=== PATIENT | male | born 1980 | race Caucasian/White ===

== ENCOUNTER → 2019-11-19 15:31 | Outpatient (CLI) | payer SELFPAY ==
--- NOTE | 2019-11-19 | IMM_PTH ---
PATIENT: VANCE NEWMAN LOC: [facility] U#:[id number] AGE/SX: 44/M ROOM: RE11/19/[address]: Dr. Blake Becker DO : 1980 BED: DIS: SPEC #: [id number] RECD: 11/21/19 13:11 STATUS: VALERIA REQ #: [id number] ANA: 11/19/19 00:[address]: Blake Becker DEPT: IMMUNOHISTOCHEMISTRY RECD BY: Geovanna Benson ENTERED: 11/21/19 13:12 SP TYPE: IMMUNO OTHR DR: Dr. 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 Localization is made via biotin free immunoperoxidase method. Appropriate controls are performed and reacted as expected. Results on target cell population are indicated in the following table: RESULTS: ANTIBODY / CLONE RESULT Block B CD3 (PS1) positive CD5 (SP10) positive CD20 (L26) positive CD45 (RP2/18) positive CD79a (11E3) positive CD34 (QBEnd-10) positive, rare cells These tests were developed and their performance characteristics determined by [facility]. They may not have been cleared or approved by the [place]. Food and Drug Administration. The FDA has determined that such clearance or approval is not necessary. The above immunohistochemical/dualISH markers are ordered and reviewed by the Pathologist. INTERPRETATION: B. Bone marrow clot, biopsy: Interstitial infiltrates of small lymphocytes and minute lymphoid aggregates are noted, polytypic in nature, favor benign. Significant increase number of blasts are not seen. SJ:jesi 11/24/19
--- NOTE | 2019-11-19 13:30 | BMB_PTH ---
PATIENT: VANCE NEWMAN LOC: [facility] U#:[id number] AGE/SX: 44/M ROOM: RE11/19/[address]: Dr. Blake Becker DO : 1980 BED: DIS: SPEC #: [id number] RECD: 11/19/19 15:30 STATUS: VALERIA REQ #: [id number] ANA: 11/19/19 13:[address]: Blake Becker DEPT: BONE MARROW RECD BY: Rohith Gonzalez ENTERED: 11/20/19 08:04 SP TYPE: BMB OT DR: Dr. 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 Iron - absent. Flow cytometry study from [facility] shows no significant immunophenotypic abnormality detected. The complete report is viewable in patient's EMR. Cytogenetic studies are pending at this time. SJ:jesi 11/25/19 COMMENT Bone marrow core biopsy and clot do not show any significant increase of myeloid cells. Correlation with clinical findings and appropriate follow up are necessary. As per clinical history, patient has history of CML x5 years and recent increase in BCR/ABL. Case has been reviewed in consultation with Dr. Obrien who concurs with the above diagnosis. IDC:AM BONE MARROW STUDY Slides are reviewed. CBC DATE: 11/19/19 WBC 3.88; RBC 4.48; HGB 13.5; HCT 41.9; MCV 93.5; RDW 13.5; PLTS 117,000 SEGS 60.5%; LYMPHS 30.7%; MONOS 7.0%; EOS 1.3%; BASOS 0.5% PERIPHERAL SMEAR: Submitted. RBC: Normocytic and normochromic. WBC: Unremarkable. The WBC count is compatible to as reported above. PLTS: Mildly decreased. BONE MARROW ASPIRATE DIFFERENTIAL: 200 cell count. Blasts % (normal 0-2): 0 Promyelocytes % (normal 1-5): 1elocytes and metamyelocytes % (normal 17-41): 20 Bands and Segs % (normal 15-32): 41 Eos % (normal 1-6): 4 Basos % (normal 0-1): 0 Monocytes % (normal 0-4): 1 Erythroid Precursors % (normal 17-35): 23 Lymphocytes % (normal 7-13): 10 Plasma Cells % (normal 0-2): 0 ASPIRATE FINDINGS: Site: Not specified Spicular, Cellular M/E ratio: 2.9 (Normal 1.5-4.0) Megakaryocytes: Present and normal morphology. Erythropoiesis: Normoblastic. Granulopoiesis: Progressive and unremarkable. CORE BIOPSY FINDINGS: Site: Not specified Adequacy: Adequate Cellularity: 50% M/E ratio: Within normal limits. Megakaryocytes: Present and adequate in number. Bony trabeculae: Unremarkable. Granulomas: Absent. Lymphoid aggregate: Absent. Atypical infiltrate: Absent. ASPIRATE CLOT FINDINGS: Site: Not specified Marrow particles: Numerous Cellularity: 50% M/E ratio: Within normal limits. Megakaryocytes: Present and adequate in number. Granulomas: Absent. Lymphoid aggregates: Minute lymphoid aggregates are noted.. Atypical infiltrates: Absent. Comment: Immunohistochemistry ([id number]) shows interstitial infiltrates of small lymphocytes and minute lymphoid aggregates, polytypic in nature, favor benign. Significant increase number of blasts are not seen. SPECIAL STAINS WITH MATCHED CONTROLS: Iron: Absent. Reticulin: No significant increase of reticulin fibers is noted. PAS: Highlights myeloid cells and megakaryocytes. BONE MARROW GROSS A - Received is a container labeled with the patient's name and designated bone marrow biopsy core. The specimen consists of a piece of treviño bone measuring 1 cm in length and 0.2 cm in diameter. The specimen is totally submitted in one cassette after decalcification. B - Received labeled with the patient's name and designated bone marrow biopsy clot is a specimen that consists of approximately 15 cc of bloody fluid that on filtration yields multiple minute fragments of blood clots measuring in aggregate 2 x 1.5 x 0.2 cm. The specimen is totally submitted in one cassette. C - Also received are 6 unstained and 2 peripheral stained slides. The unstained slides are submitted for appropriate staining. Also received are two green top tubes which are sent to our reference lab for flow and cytogenetics. / SJ:rg 11/20/19 TC: CPT: 08161, 46253, 63657 x2, 78269 x3, 11798 ADDENDUM ADDENDUM ADDENDUM ADDENDUM ADDENDUM ADDENDUM ADDENDUM ADDENDUM 12/08/2019 09:59 ADDENDUM 12/08/2019 09:59 ADDENDUM 12/08/2019 09:59 ADDENDUM 12/08/2019 09:59 ADDENDUM 12/08/2019 09:59 [facility] RESULT: 46,XY[12] INTERPRETATION: Normal male karyotype was observed in twenty metaphases analyzed. Please see complete report in e-chart or EMR for further details
== END ==
PROVIDERS: PCP Family Medicine; Referring Provider Internal Medicine Hematology & Oncology; Visit Provider Internal Medicine Hematology & Oncology
DX: Z85.6 Personal history of leukemia (principal)
CPT/HCPCS: 88305; 88311; 88313; 88341; 88342

== ENCOUNTER → 2020-12-19 17:41 | Outpatient (CLI) | payer OTHER, SELFPAY ==
[2020-12-19 18:47] LABS: 24HR. UA Prot. Total Volume 2675 mL
[2020-12-19 18:53] LABS: Albumin, Serum 3.4 g/dL (3.2-5.0); BUN 19 mg/dL (7-18); BUN/Creat Ratio 12.9 RATIO (10-20); Calcium,Total 9.9 mg/dL (8.5-10.1); Chloride 110 mmol/L (98-107); Creatinine, Serum 1.47 mg/dL (0.70-1.30); EST Glomerular Filtration Rate 57 mL/min (>60); Est Glom Filt Rate - Afr Amer 69 mL/min (>60); Glucose 93 mg/dL (74-106); Phosphorus 2.1 mg/dL (2.5-4.9); Potassium 4.3 mmol/L (3.5-5.1); Sodium Level 144 mmol/L (136-145)
[2020-12-19 18:54] LABS: Creat.Clear Total Volume 2675 mL; Creatinine Clearance 123 ml/min (100-200); Creatinine Serum Creat 1.5 mg/dL (0.8-1.3); Creatinine Urine 97.2 mg/dL (NO RANGE EST.); EST Glomerular Filtration Rate 57 mL/min (>60); Est Glom Filt Rate - Afr Amer 69 mL/min (>60)
== END ==
LOC: LAB.FUTURE 17:43 → LAB 12-20 00:18
PROVIDERS: PCP Family Medicine; Visit Provider Internal Medicine Nephrology
DX: N18.31 Chronic kidney disease, stage 3a (principal)
CPT/HCPCS: 36415; 80069; 81050; 82575; 83970; 84156

== ENCOUNTER → 2020-12-30 11:05 | Outpatient (CLI) | payer OTHER, SELFPAY ==
[2020-12-31 16:09] LABS: Immunoglobulin A 128 mg/dL (90-386); Immunoglobulin G 897 mg/dL (603-1613)
[2020-12-31 21:43] LABS: Immunoglobulin M 45 mg/dL (20-172)
== END ==
PROVIDERS: PCP Family Medicine; Visit Provider Internal Medicine Nephrology
DX: R80.9 Proteinuria, unspecified (principal)
CPT/HCPCS: 36415; 82784; 86334

== ENCOUNTER → 2021-03-17 12:13 | Outpatient (CLI) | payer OTHER, SELFPAY ==
[2021-03-17 13:22] LABS: Protein, Urine (Random) 41.5 mg/dL (<11.9); Protein:Creat Ratio 830 mg/g CRE (0-200)
[2021-03-22 16:09] LABS: PROELU- Albumin, Urine 76.2 % (.); PROELU- Alpha-1-Globulin,Ur 5.2 % (.); PROELU- Alpha-2-Globulin,Ur 4.5 % (.); PROELU- Beta Globulin, Ur 7.9 % (.); PROELU- Gamma Globulin, Ur 6.1 % (.); Total Protein, Ur 40.3 mg/dL (Not Estab.)
== END ==
PROVIDERS: PCP Family Medicine; Visit Provider Internal Medicine Nephrology
DX: N18.31 Chronic kidney disease, stage 3a (principal); R80.9 Proteinuria, unspecified
CPT/HCPCS: 82570; 84156; 84166

== ENCOUNTER → 2021-06-06 17:37 | Outpatient (CLI) | payer OTHER, SELFPAY ==
[2021-06-06 18:18] LABS: Protein, Urine (Random) 79.3 mg/dL (<11.9); Protein:Creat Ratio 640 mg/g CRE (0-200)
[2021-06-06 18:31] LABS: Albumin, Serum 3.8 g/dL (3.2-5.0); BUN 15 mg/dL (7-18); BUN/Creat Ratio 9.6 RATIO (10-20); Calcium,Total 10.3 mg/dL (8.5-10.1); Chloride 109 mmol/L (98-107); Creatinine, Serum 1.56 mg/dL (0.70-1.30); EST Glomerular Filtration Rate 53 mL/min (>60); Est Glom Filt Rate - Afr Amer 64 mL/min (>60); Glucose 91 mg/dL (74-106); Phosphorus 2.4 mg/dL (2.5-4.9); Sodium Level 141 mmol/L (136-145)
[2021-06-07 08:27] LABS: PTHIN 150.9 pg/mL (18.4-80.1)
== END ==
LOC: LAB.FUTURE 17:40 → LAB 06-08 13:19
PROVIDERS: PCP Family Medicine; Visit Provider Internal Medicine Nephrology
DX: N18.31 Chronic kidney disease, stage 3a (principal); R80.9 Proteinuria, unspecified
CPT/HCPCS: 36415; 80069; 82570; 83970; 84156

== ENCOUNTER → 2021-08-29 15:55 | Outpatient (CLI) | payer OTHER, SELFPAY ==
[2021-08-29 16:33] LABS: Protein, Urine (Random) 38.7 mg/dL (<11.9); Protein:Creat Ratio 393 mg/g CRE (0-200)
[2021-08-29 16:40] LABS: Albumin, Serum 3.6 g/dL (3.2-5.0); BUN 21 mg/dL (7-18); BUN/Creat Ratio 12.1 RATIO (10-20); Calcium,Total 9.9 mg/dL (8.5-10.1); Chloride 109 mmol/L (98-107); Creatinine, Serum 1.74 mg/dL (0.70-1.30); EST Glomerular Filtration Rate 47 mL/min (>60); Est Glom Filt Rate - Afr Amer 57 mL/min (>60); Glucose 100 mg/dL (74-106); Phosphorus 2.3 mg/dL (2.5-4.9); Potassium 4.5 mmol/L (3.5-5.1); Sodium Level 139 mmol/L (136-145)
== END ==
PROVIDERS: PCP Family Medicine; Visit Provider Internal Medicine Nephrology
DX: N18.31 Chronic kidney disease, stage 3a (principal); R80.9 Proteinuria, unspecified
CPT/HCPCS: 36415; 80069; 82570; 84156

== ENCOUNTER 2022-02-06 16:54 | Outpatient (CLI) | payer OTHER, SELFPAY ==
[2022-02-06 17:22] LABS: Hematocrit 38.2 % (40-54); Hemoglobin 12.3 g/dL (13.0-16.5); Mean Corp Hgb Conc 32.2 g/dL (32-36); Mean Corpuscular Hgb 29.9 pg (27.0-32.0); Mean Corpuscular Volume 92.9 fL (80-94); Platelet Count 168 K/mm3 (150-450); RBC Distribution Width CV 13.5 % (11.6-14.6); RBC Distribution Width SD 46.4 fl (35.1-43.9); Red Blood Count 4.11 M/mm3 (4.6-6.2); White Blood Count 5.1 K/mm3 (4.4-11.0)
[2022-02-06 18:05] LABS: Albumin, Serum 3.8 g/dL (3.2-5.0); BUN 16 mg/dL (7-18); BUN/Creat Ratio 10.2 RATIO (10-20); Calcium,Total 10.1 mg/dL (8.5-10.1); Chloride 107 mmol/L (98-107); Creatinine, Serum 1.57 mg/dL (0.70-1.30); EST Glomerular Filtration Rate 52 mL/min (>60); Est Glom Filt Rate - Afr Amer 64 mL/min (>60); Glucose 97 mg/dL (74-106); Phosphorus 2.4 mg/dL (2.5-4.9); Potassium 4.2 mmol/L (3.5-5.1); Sodium Level 140 mmol/L (136-145)
[2022-02-07 09:03] LABS: PTHIN 137.4 pg/mL (18.4-80.1)
== END 2022-02-06 23:59 | disposition home or self-care (01) ==
LOC: LAB 16:55
PROVIDERS: PCP Family Medicine; Referring Provider Internal Medicine Nephrology; Visit Provider Internal Medicine Nephrology
DX: N18.31 Chronic kidney disease, stage 3a (principal)
CPT/HCPCS: 36415; 80069; 83970; 85027

== ENCOUNTER 2022-02-09 11:51 | Outpatient (CLI) | payer OTHER, SELFPAY ==
[2022-02-09 12:30] LABS: Protein, Urine (Random) 59.2 mg/dL (<11.9); Protein:Creat Ratio 558 mg/g CRE (0-200)
== END 2022-02-09 23:59 | disposition home or self-care (01) ==
LOC: POLAB3 11:52
PROVIDERS: PCP Family Medicine; Visit Provider Internal Medicine Nephrology
DX: R80.9 Proteinuria, unspecified (principal)
CPT/HCPCS: 82570; 84156

== ENCOUNTER → 2022-08-21 | Outpatient (CLI) | payer OTHER, SELFPAY ==
[2022-08-21 18:12] LABS: Protein, Urine (Random) 33.4 mg/dL (<11.9); Protein:Creat Ratio 445 mg/g CRE (0-200)
[2022-08-21 19:31] LABS: Albumin, Serum 3.9 g/dL (3.2-5.0); BUN 27 mg/dL (7-18); Chloride 108 mmol/L (98-107); Creatinine, Serum 1.69 mg/dL (0.70-1.30); EST Glomerular Filtration Rate 48 mL/min (>60); Est Glom Filt Rate - Afr Amer 58 mL/min (>60); Glucose 103 mg/dL (74-106); Phosphorus 2.8 mg/dL (2.5-4.9); Potassium 4.3 mmol/L (3.5-5.1); Sodium Level 141 mmol/L (136-145)
== END | disposition home or self-care (01) ==
LOC: LAB 17:21
PROVIDERS: PCP Family Medicine; Referring Provider Internal Medicine Nephrology; Visit Provider Internal Medicine Nephrology
DX: N18.31 Chronic kidney disease, stage 3a (principal); R80.9 Proteinuria, unspecified
CPT/HCPCS: 36415; 80069; 82570; 84156